=== PATIENT | female | born 1990 | race Two or more races ===

== ENCOUNTER 2017-02-27 20:38 | Emergency (ER) | payer OTHER ==
[~2017-02-27] VITALS: Ht 165.1 cm; Wt 181.4 kg
[2017-02-27] MEDS ORDERED: ONDANSETRON PF 4 MG/2 ML VIAL. ONE (20:47)
[2017-02-27] MEDS ORDERED: ONDANSETRON ODT 4 MG TAB.RAPDIS ONE (20:53)
[2017-02-27] MEDS ORDERED: ONDANSETRON PF 4 MG/2 ML VIAL. IV ONE (21:00)
--- NOTE | 2017-02-27 21:06 | PHYS DOC ---
General Pediatric Assessment Chief Complaint Abdominal pain and nausea and vomiting History of Present Illness 26-year-old female patient with history of diabetes mellitus and morbid obesity complaining of flulike symptoms for several days that started las week and gradually improved. Patient complaining of gradual onset of intermittent episodes of left upper quadrant abdominal pain as a sharp pain that started about one week ago and gradually getting more constant and severe. Patient states her pain was 4/10 and increased to 8/10. Patient states the pain radiated to left flank and right upper quadrant and associated with nausea and 3 or 4 episodes of vomiting daily. Patient states she had constipation but for the last 3 days she has had 4-5 episodes of nonbloody loose stool every day. Patient complaining of urinary frequency and anorexia and states she had fever up to 101 today and had Tylenol this morning. Patient denies vaginal bleeding and discharge, shortness of breath, chest pain, sick contact. Patient states she was seen at [facility] on 02/23/[address] and had [address] CT of abdomen and had 1 dose of antibiotic emergency and discharged home with with hydrocodone without antibiotic. Review of Systems Constitutional: Reports fever and chills [] Eyes: Denies change in visual acuity, redness, or eye pain [] HENT: Denies nasal congestion or sore throat [] Respiratory: Denies cough or shortness of breath [] Cardiovascular: No additional information not addressed in HPI [] GI: Reports abdominal pain, nausea, vomiting, diarrhea [] : Denies dysuria or hematuria [] Musculoskeletal: Denies back pain or joint pain [] Integument: Denies rash or skin lesions [] Neurologic: Denies headache, focal weakness or sensory changes [] Endocrine: Denies polyuria or polydipsia [] All other systems were reviewed and found to be within normal limits, except as documented in this note. Current Medications Current Medications Medications (Trade) Dose Ordered Sig/Helen Start Time Stop Time Status Last Admin Dose Admin Ondansetron HCl (Zofran Odt) 4 mg STK-MED ONCE 02/27/17 20:53 02/27/17 20:54 DC Ondansetron HCl (Zofran) 4 mg 1X ONCE 02/27/17 21:00 02/27/17 21:01 UNV Sodium Chloride 1,000 ml @ 1,000 mls/hr Q1H 02/27/17 20:57 02/27/17 21:56 UNV Allergies Allergies Coded Allergies Type Severity Reaction Last Updated Verified No Known Drug Allergies 02/27/17 No Physical Exam Constitutional: Moderate distress, non-toxic appearance, looks ill, morbidly obese HENT: Normocephalic, atraumatic, bilateral external ears normal, oropharynx dry , no oral exudates, nose normal. Eyes: PERLL, EOMI, conjunctiva normal, no discharge. Neck: Normal range of motion, no tenderness, supple, no stridor. Cardiovascular: tachycardia, normal rhythm, no murmurs, no rubs, no gallops. Thorax and Lungs: Normal breath sounds, no respiratory distress, no wheezing, no chest tenderness, no retractions, no accessory muscle use. Abdomen: Bowel sounds normal, soft, no tenderness, no masses, no pulsatile masses. Skin: Warm, dry, no erythema, no rash. Back: No tenderness, no CVA tenderness. Extremeties: Intact distal pulses, no tenderness, no cyanosis, no clubbing, ROM intact, no edema. Musculoskeletal: Good ROM in all major joints, no tenderness to palpation or major deformities noted. Neurologic: Alert and oriented X 3, normal motor function, normal sensory function, no focal deficits noted. Psychologic: Affect normal, judgement normal, mood normal. Radiology/Procedures [] Course & Med Decision Making Pertinent Labs and Imaging studies reviewed. (See chart for details) Chest x-ray interpreted by me shows elevation of right diaphragmatic and some haziness in the right lower lobe Evaluation of patient in ER showed 26-year-old female patient with history of diabetes and morbid obesity presented to ER with abdominal and flank pain for more than one week and episodes of nausea and vomiting and diarrhea with fever. Patient had temperature of 99.4 in ER with tachycardia more than 120 that gradually decreased to 110. Patient had mild UTI and elevation of white count without lactic acidosis or electrolyte problem or dehydration . Patient treated with 2 L of normal saline, Zofran, fentanyl, Rocephin and felt better. I talked to on-call hospitalist Dr Moran at [phone] and he recommended to transfer patient to [facility] because the patient had her care at that hospital previously. Dr. Snow from [facility] accepted transfer at [id number]. Patient informed about plan of care and test results and needs for transfer. Critical Care Note Total Time (mins): 70 Departure Departure: Impression: Primary Impression: Abdominal pain Additional Impressions: Nausea & vomiting Tachycardia Uncontrolled diabetes mellitus UTI (urinary tract infection) Pseudotumor cerebri Morbidly obese Disposition: 02 XFER T-[facility] ([id number]) Condition: GUARDED Referrals: PCP,UNKNOWN (PCP) Problem Qualifiers SMITHA WHITESIDE MD Feb 27, 2017 21:06
[2017-02-27] MEDS: IV NORMAL SALINE 1,000ML 1,000 ML IV SCH ×2 (21:16→21:53)
[2017-02-27 21:36] LABS: BASO % 0 % (0-3); EOS % 0 % (0-3); HEMATOCRIT 36.5 % (36.0-47.0); HEMOGLOBIN 12.1 g/dL (12.0-15.5); LYMPH # 1.8 x10^3/uL (1.0-4.8); LYMPH % 16 % (24-48); MEAN CORPUSCULAR HEMOGLOBIN 28 pg (25-35); MEAN CORPUSCULAR HGB CONC 33 g/dL (31-37); MEAN CORPUSCULAR VOLUME 83 fL (79-100); MONO # 0.7 x10^3/uL (0.0-1.1); MONO % 6 % (0-9); NEUT # 9.1 x10^3uL (1.8-7.7); NEUT % 78 % (31-73); PLATELET COUNT 397 x10^3/uL (140-400); RED BLOOD COUNT 4.38 x10^6/uL (3.50-5.40); RED CELL DISTRIBUTION WIDTH 14.5 % (11.5-14.5); WHITE BLOOD COUNT 11.6 x10^3/uL (4.0-11.0)
[2017-02-27 21:50] LABS: ALBUMIN 2.8 g/dL (3.4-5.0); ALBUMIN/GLOBULIN RATIO 0.6 (1.0-1.7); CALCIUM 8.7 mg/dL (8.5-10.1); CREATININE 0.8 mg/dL (0.6-1.0); POTASSIUM 3.9 mmol/L (3.5-5.1); TOTAL BILIRUBIN 0.7 mg/dL (0.2-1.0); TOTAL PROTEIN 7.5 g/dL (6.4-8.2)
[2017-02-27 21:58] LABS: CLARITY,URINE HAZY; COLOR,URINE YELLOW
[2017-02-27 21:59] LABS: BACTERIA,URINE FEW /HPF (0-FEW); BARBITURATES NEG (NEG); BENZODIAZEPINES NEG (NEG); BILIRUBIN,URINE NEG (NEG); CANNABINOIDS NEG (NEG); COCAINE NEG (NEG); GLUCOSE,URINE 500 mg/dL (NEG); METHADONE NEG (NEG); NITRITE,URINE NEG (NEG); OPIATES NEG (NEG); PHENCYCLIDINE NEG (NEG); SQUAMOUS EPITHELIAL CELL,UR FEW /LPF; UROBILINOGEN,URINE 1 mg/dL (0.2 mg/dL)
[2017-02-27] MEDS ORDERED: IV NORMAL SALINE 1,000ML 1,000 ML IV ONE (22:00)
[2017-02-27 22:04] LABS: AMPHETAMINE/METHAMPHETAMINE NEG (NEG)
[2017-02-27] MEDS ORDERED: cefTRIAXone SODIUM 1 GM VIAL IV ONE (22:13)
[2017-02-27] MEDS ORDERED: IV NORMAL SALINE 50ML 50 ML ONE (22:13)
[2017-02-27 22:15] VITALS: BP 142/90
[2017-02-27 22:17] LABS: BGAS PH 7.37 (7.35-7.45)
--- NOTE | 2017-02-28 08:09 | RAD ---
Chest, 2 views, 02/27/2017: History: Fever, pain The heart size and pulmonary vascularity are normal. There is slight elevation of the right hemidiaphragm. No acute infiltrates are seen. There is no evidence of pleural fluid. IMPRESSION: No acute cardiopulmonary abnormality is detected.
== END 2017-02-27 23:51 | disposition short-term general hospital (02) ==
LOC: ER 20:38
DX: N39.0 Urinary tract infection, site not specified (principal); R00.0 Tachycardia, unspecified; G93.2 Benign intracranial hypertension; E11.65 Type 2 diabetes mellitus with hyperglycemia; E66.01 Morbid (severe) obesity due to excess calories; Z68.44 Body mass index [BMI] 60.0-69.9, adult
CPT/HCPCS: 36415; 36600; 71020; 80053; 80307; 81001; 81025; 82010; 82803; 82947; 83605; 83690; 83880; 84484; 85025; 87040; 87086; 96361; 96365; 96375; 96376; 99291; J0696; J2405; J3010; 99285-25; G0479; J7030